=== PATIENT | female | born 1950 | race Caucasian/White ===

== ENCOUNTER 2017-07-04 07:37 | Day surgery (SDC) | payer MEDICARE, BC | END 2017-07-04 12:20 | disposition home or self-care (01) | LOC: D.OPS 07:37 | DX: D12.5 Benign neoplasm of sigmoid colon (principal); K31.7 Polyp of stomach and duodenum; K44.9 Diaphragmatic hernia without obstruction or gangrene; K57.30 Diverticulosis of large intestine without perforation or abscess without bleeding; K22.2 Esophageal obstruction; C34.90 Malignant neoplasm of unspecified part of unspecified bronchus or lung; K29.80 Duodenitis without bleeding; K29.60 Other gastritis without bleeding; Z01.812 Encounter for preprocedural laboratory examination; I10 Essential (primary) hypertension; K21.9 Gastro-esophageal reflux disease without esophagitis ==